=== PATIENT | female | born 1995 | race Caucasian/White ===

== ENCOUNTER 2024-05-02 14:47 | Emergency (ER) | payer SELFPAY ==
[2024-05-02 15:13] VITALS: BP 136/96; PULSE 83; TEMP 36.6; O2SAT 99; BMI 32.1
--- NOTE | 2024-05-02 15:21 | ED_ITS ---
HPI HPI - Back Pain/Injury General Chief Complaint: Back Pain/Injury Stated Complaint: BACK PAIN Time Seen by Provider: 05/02/24 15:06 Source: patient Mode of arrival: walk-in History of Present Illness HPI Narrative: Patient is a 29-year-old female who presents to the emergency department for increasing low back pain across the low back with some radiation to her bilateral lower extremities. She denies numbness or tingling. She states the pain began after she was helping lift and move her friend. She denies any urinary symptoms or possibility of . No direct falls or injuries. Related Data Home Medications ?Medication ?Instructions ?Recorded ?Confirmed No Known Home Medications 05/02/24 05/02/24 Previous Rx's ?Medication ?Instructions ?Recorded hydrocodone 5 mg-acetaminophen 325 1 tab PO Q6H PRN pain 3 days #12 05/02/24 mg tablet tabs ketorolac 10 mg tablet 10 mg PO TID PRN pain #10 tabs 05/02/24 methocarbamol 750 mg tablet 750 mg PO TID PRN pain #20 tabs 05/02/24 methylprednisolone 4 mg tablets in See Rx Instructions .Route 05/02/24 a dose pack (Medrol (Lv)) .COMPLEX #21 ea Allergies Allergy/AdvReac Type Severity Reaction Status Date / Time ciprofloxacin (From Cipro) AdvReac Severe Anaphylaxis Verified 05/02/24 15:13 Opioid HPI Opioid Management Most Recent Opioid Data: Last Pain Scale 8 05/02/24 15:30 05/02/24 Last MAR Pain Assessment 05/02/24 15:30 Review of Systems ROS Constitutional Denies: fever or chills Ears, nose, mouth, and throat Denies: throat pain or nasal congestion Cardiovascular Denies: chest pain Respiratory Denies: shortness of breath Gastrointestinal Denies: abdominal pain, nausea or vomiting Genitourinary Denies: painful urination or urinary incontinence Musculoskeletal Reports: back pain; Denies: neck pain Integumentary/Breast Denies: rash Neurological Denies: numbness in extremities or weakness in extremities Hematologic/Lymphatic Denies: easy bruising or easy bleeding PFSH PFSH Social History Little interest or pleasure in doing things: not at all Feeling down, depressed, or hopeless: not at all Exam Narrative Exam Narrative: Gen.: Awake, alert, in no distress Head: Normocephalic, atraumatic ENT: Moist mucous membranes Respiratory: No respiratory distress Gastrointestinal: Abdomen is soft, nondistended and nontender to palpation Extremities: Moves extremities equally, no injuries noted, no bony point tenderness of the lumbar spine with diffuse tenderness of the spine and paraspinal muscles of the low back. No obvious deformity or step-off. Normal dorsiflexion and plantarflexion of the lower extremities. Normal hip flexion bilaterally. No decrease in sensation to the medial thighs Psych: Normal mood and affect Neuro: No focal neuro deficit Skin: Warm, dry, intact Constitutional Vital Signs, click to edit/add: Last Vital Signs Temp 97.9 F 05/02/24 15:13 Pulse 65 05/02/24 16:36 Resp 16 05/02/24 16:36 BP 124/81 05/02/24 16:36 Pulse Ox 98 05/02/24 16:36 Course Vital Signs Vital signs: Vital Signs Temperature 97.9 F 05/02/24 15:13 Pulse Rate 83 05/02/24 15:13 Respiratory Rate 18 05/02/24 15:13 Blood Pressure 136/96 H 05/02/24 15:13 Pulse Oximetry 99 05/02/24 15:13 Temperature 97.9 F 05/02/24 15:13 Pulse Rate 65 05/02/24 16:36 Respiratory Rate 16 05/02/24 16:36 Blood Pressure 124/81 05/02/24 16:36 Pulse Oximetry 98 05/02/24 16:36 MDM - Back Pain/Injury MDM Narrative Medical decision making narrative: X-rays of the lumbar spine with mild disc narrowing at L4/L5 and L5/S1. Patient is neurovascularly intact with no peripheral paresthesias or incontinence, no focal neurodeficits. She was treated for pain in the ER and will be discharged home with instructions for lumbar strain. Follow-up with PCP and return to the ER if symptoms change or worsen SUPERVISED APC VISIT, PHYSICIAN ATTESTATION: Based on the medical record the care appears appropriate. ? Medical Records Attestation: I reviewed the patient's medical records. Imaging Data XR lumbar spine: Attestation: I have reviewed the pertinent imaging results. Discharge Plan Discharge Chief Complaint: Back Pain/Injury Clinical Impression: Strain of lumbar region Patient Disposition: Home, Self-Care Time of Disposition Decision: 16:49 Condition: Good Prescriptions / Home Meds: New hydrocodone-acetaminophen 5-325 mg tablet 1 tab PO Q6H PRN (Reason: pain) 3 Days Qty: 12 0RF Rx Instructions: DX: M54.5 ketorolac 10 mg tablet 10 mg PO TID PRN (Reason: pain) Qty: 10 0RF methocarbamol 750 mg tablet 750 mg PO TID PRN (Reason: pain) Qty: 20 0RF methylprednisolone [Medrol (Lv)] 4 mg tablets,dose pack See Rx Instructions .ROUTE .COMPLEX Qty: 21 0RF Rx Instructions: Taper as directed No Action No Known Home Medications Print Language: [place]er Instructions: Low Back Strain (ED) Referrals: Physician,Non-Staff, MD [Primary Care Provider] - 1 week
[2024-05-02] MEDS: KETOROLAC TROMETHAMINE 60 MG/2 ML VIAL IM (15:30)
[2024-05-02] MEDS: HYDROCODONE/ACET 5-325 MG TABLET 1 TAB PO (15:30)
[2024-05-02] MEDS: ORPHENADRINE 60 MG/ 2 ML VIAL IM (15:31)
[2024-05-02 16:36] VITALS: BP 124/81; PULSE 65; O2SAT 98
== END 2024-05-02 17:08 | disposition home or self-care (01) ==
PROVIDERS: Emergency Provider Emergency Medicine
DX: S39.012A Strain of muscle, fascia and tendon of lower back, initial encounter (principal); X50.0XXA Overexertion from strenuous movement or load, initial encounter
CPT/HCPCS: 72100; 96372; 99284; J1885; J2360